=== PATIENT | female | born 1995 | race Caucasian/White ===

== ENCOUNTER 2016-07-01 17:01 | Emergency (ER) | payer OTHER ==
[2016-07-01 18:08] VITALS: BP 152/95
--- NOTE | 2016-07-01 19:25 | UC ---
Throat Pain/Nasal Pillo HPI - HPI Summary HPI Summary: TWO DAY HISTORY OF SORE THROAT FEVER AND LIGHT HEADEDNESS. - History of Current Complaint Chief Complaint: UCRespiratory Stated Complaint: SORE THROAT Time Seen by Provider: 07/01/16 18:21 Hx Obtained From: Patient Hx Last Menstrual Period: one week ago Onset/Duration: Gradual Onset, Lasting Days, Still Present, Worse Since - TODAY Severity: Moderate Cough: Nonproductive Associated Signs & Symptoms: Positive: Dysphagia, Hoarseness, Fever - Epiglottits Risk Factors Epiglottis Risk Factors: Negative - Allergies/Home Medications Allergies/Adverse Reactions: Allergies Allergy/AdvReac Type Severity Reaction Status Date / Time No Known Allergies Allergy Verified 07/01/16 18:08 Home Medications: Home Medications Atorvastatin* [Lipitor*] 10 mg PO 2100 07/01/16 [History Confirmed 07/01/16] Ibuprofen TAB* [Advil TAB*] 400 mg PO DAILY PRN 07/01/16 [History Confirmed ] guaiFENesin LIQ* [Robitussin*] 5 mg PO ONCE PRN 07/01/16 [History Confirmed ] PMH/Surg Hx/FS Hx/Imm Hx Previously Healthy: Yes - Surgical History Surgical History: Yes Surgery Procedure, Year, and Place: wisdom teeth - Family History Known Family History: Negative: Respiratory Disease - Social History Occupation: Student Lives: With Family Alcohol Use: Occasionally Substance Use Type: None Smoking Status (MU): Never Smoked Tobacco Review of Systems Constitutional: Fever, Fatigue Skin: Negative Eyes: Negative ENT: Sore Throat Respiratory: Negative Cardiovascular: Negative Gastrointestinal: Negative Genitourinary: Negative Motor: Negative Neurovascular: Negative Musculoskeletal: Negative Neurological: Negative Psychological: Negative All Other Systems Reviewed And Are Negative: Yes Physical Exam Triage Information Reviewed: Yes Appearance: No Pain Distress, Well-Nourished, Ill-Appearing - MILD Vital Signs: Initial Vital Signs Temp 98.9 F 07/01/16 18:00 Pulse 95 07/01/16 18:00 Resp 18 07/01/16 18:00 BP 152/95 07/01/16 18:00 Pulse Ox 100 07/01/16 18:00 Eye Exam: Normal ENT: Positive: Hearing grossly normal, Pharyngeal erythema, TMs normal, Tonsillar swelling Dental Exam: Normal Neck exam: Normal Neck: Positive: Supple, Nontender, No Lymphadenopathy Respiratory Exam: Normal Respiratory: Positive: Chest non-tender, Lungs clear, Normal breath sounds, No respiratory distress, No accessory muscle use Cardiovascular Exam: Normal Cardiovascular: Positive: RRR, No Murmur, Pulses Normal, Brisk Capillary Refill Abdominal Exam: Normal Abdomen Description: Positive: Nontender, No Organomegaly, Soft Musculoskeletal Exam: Normal Musculoskeletal: Positive: Strength Intact Neurological Exam: Normal Psychological Exam: Normal Psychological: Positive: Normal Response To Family Skin Exam: Normal Throat Pain/Nasal Course/Dx - Differential Dx/Diagnosis Differential Diagnosis/HQI/PQRI: Influenza, Pharyngitis, Tonsillitis, URI Provider Diagnoses: TONSILLITIS Discharge - Discharge Plan Condition: Stable Disposition: HOME Patient Education Materials: Tonsillitis (ED) Forms: *School Release
== END 2016-07-01 19:24 | disposition home or self-care (01) ==
LOC: UCCORT 17:01
DX: J03.90 Acute tonsillitis, unspecified (principal)
CPT/HCPCS: 87651; 99211; G0463